=== PATIENT | male | born 1985 | race Caucasian/White ===

== ENCOUNTER 2016-05-23 20:22 | Emergency (ER) | payer MEDICAID ==
[~2016-05-23] VITALS: Ht 185.4 cm; Wt 70.3 kg
[2016-05-23 21:22] VITALS: BP 106/67
--- NOTE | 2016-05-23 22:05 | NUR ---
Patient to bed 05
--- NOTE | 2016-05-23 22:16 | NUR ---
Dr. Miller evaluating patient at bedside.
[2016-05-23] MEDS ORDERED: cefTRIAXone 250 MG in LIDOCAINE 1% ED 0.9 ML IM ONE (22:20)
--- NOTE | 2016-05-23 22:29 | NUR ---
PATIENT PRESENTS TO ED WITH C/O THROAT SWELLING . PT STATES HE WAS RECENTLY IN CONTACT WITH AN INDIVIDUAL POSITIVE FOR GHONORRHEA . DENIES N/V/D; SKIN IS PINK/WARM/DRY; AAOX4 WITH EVEN AND STEADY GAIT; LUNGS CLEAR BL; HR EVEN AND REGULAR; PT DENIES ANY FEVER, CP, SOB, OR COUGH AT THIS TIME; PATIENT STATES PAIN OF 0/10 AT THIS TIME; VSS; PATIENT POSITIONED FOR COMFORT; HOB ELEVATED; BEDRAILS UP X2; BED DOWN. ER MD MADE AWARE OF PT STATUS.
--- NOTE | 2016-05-23 22:51 | NUR ---
Patient discharged with v/s stable. Written and verbal after care instructions given and explained. Patient verbalized understanding. Ambulatory with steady gait. All questions addressed prior to discharge. Advised to follow up with PMD.
[2016-05-23 22:52] VITALS: BP 117/69
== END 2016-05-23 22:51 | disposition home or self-care (01) ==
LOC: MED 20:27
DX: A54.9 Gonococcal infection, unspecified (principal)
CPT/HCPCS: 96372; 99283; J0696; J2001